=== PATIENT | male | born 1945 | race Hispanic/Latino ===

== ENCOUNTER 2019-03-26 07:54 | Outpatient (CLI) | payer MEDICARE, OTHER ==
--- NOTE | 2019-03-26 10:18 | MRI ---
MRI OF THE PELVIS WITH AND WITHOUT IV CONTRAST: INDICATION: History of elevated PSA with a family history of prostate cancer; history of prostate biopsy 2 years ago which was negative. TECHNIQUE: Multiplanar, multisequence MRI images were obtained of the pelvis with and without contrast utilizing prostate cancer specific protocol. 20 cc of MultiHance was utilized for the examination. The exami nation was interpreted utilizing a separate 3D DynaCAD work station for a multiparametric evaluation. COMPARISON: None. FINDINGS: The prostate gland measures 6.9 x 6.5 x 7.1 cm giving an estimated prostatic volume of 149.0 cc. No area of suspicious restricted diffusion is seen within the peripheral zone. No suspicious lesion is seen within the central zone. There are numerous BPH nodules seen within the central aspect of the p rostate gland. No neurovascular invasion or regional lymphadenopathy is evident. There are some pankaj ear T2 hypointensities involving the left mid gland and left apex within the T2 weighted images. Thi s can be seen with prostatitis. No abnormal enhancement is grossly evident. There are a few scatter ed colonic diverticula involving the colon. No bone marrow signal abnormality is grossly evident. IMPRESSION: PIRADS category 2 - low (clinically significant cancer is unlikely to be present). POS: [facility]
== END 2019-03-26 07:55 | disposition home or self-care (01) ==
LOC: TBSIIMAG 07:54
PROVIDERS: ATTEND Urology
DX: R97.20 Elevated prostate specific antigen [PSA] (principal); Z80.42 Family history of malignant neoplasm of prostate
CPT/HCPCS: 72197; 82565

== ENCOUNTER 2025-02-20 07:29 | Outpatient (CLI) | payer MEDICARE | END 2025-02-20 07:30 | disposition home or self-care (01) | LOC: ULT 07:29 | PROVIDERS: ATTEND Internal Medicine Nephrology | DX: I12.9 Hypertensive chronic kidney disease with stage 1 through stage 4 chronic kidney disease, or unspecified chronic kidney disease (principal); N18.30 Chronic kidney disease, stage 3 unspecified; N28.89 Other specified disorders of kidney and ureter; N28.1 Cyst of kidney, acquired | CPT/HCPCS: 76770; 93975 ==

== ENCOUNTER 2025-03-04 11:24 | Outpatient (CLI) | payer MEDICARE ==
[2025-03-04 13:01] LABS: #Basophils 0.04 10x3/uL (0.0-0.2); #Eosinophils 0.08 10x3/uL (0.0-0.7); #Monocytes 0.53 10x3/uL (0.11-0.59); #Neutrophils 5.61 10x3/uL (1.40-6.50); %Basophils 0.5 % (0.0-1.0); %Eosinophils 1.0 % (0.0-10.0); %Lymphocytes 18.5 % (21.0-51.0); %Monocytes 6.9 % (0.0-10.0); %Neutrophils 72.8 % (42.0-75.0); Hematocrit 41.3 % (42.0-52.0); Hemoglobin 13.3 g/dL (14.0-18.0); Mean Corpuscular Hemoglobin 29.4 pg (27.0-31.0); Mean Corpuscular Volume 91.2 fL (78.0-98.0); Platelet Count 226 10x3/uL (130-400); Red Blood Cell (RBC) Count 4.53 mill/uL (4.70-6.10); White Blood Cell (WBC) Count 7.71 10x3/uL (4.8-10.8)
[2025-03-04 13:07] LABS: Bacteria/HPF 1+ HPF (None Seen); Glucose, Urine (Dipstick) Normal (Negative); Leukocyte 500 Leu/uL (Negative); Protein, Urine (Dipstick) 50 mg/dL (Neg-Trace); RBC/HPF Greater than 50 HPF (0-3); Specific Gravity, Urine 1.019 (1.002-1.036); WBC/HPF Greater than 50 HPF (0-3)
[2025-03-04 13:14] LABS: INR-International Normal Ratio 1.1; Prothrombin Time 14.6 sec (12.0-14.7)
[2025-03-04 13:15] LABS: PTT 33.2 sec (22.9-36.1)
[2025-03-04 13:29] LABS: Anion Gap 13 mmol/L (10-20); BUN (Urea Nitrogen) 17 mg/dL (8.4-25.7); Calc. Creatinine Clearance 0 mL/min (70-130); Calcium 9.3 mg/dL (7.8-10.44); Carbon Dioxide 27 mmol/L (23-31); Chloride 104 mmol/L (98-107); Glucose 96 mg/dL (83-110); Potassium 4.4 mmol/L (3.5-5.1); Sodium 140 mmol/L (136-145)
== END 2025-03-04 11:25 | disposition home or self-care (01) ==
LOC: LABBT 11:24
PROVIDERS: ATTEND Urology
DX: Z01.818 Encounter for other preprocedural examination (principal); N40.1 Benign prostatic hyperplasia with lower urinary tract symptoms
CPT/HCPCS: 80048; 81001; 85025; 85610; 85730; 86850; 86900; 86901; 87077; 87086; 87186; 93005; 93010